=== PATIENT | female | born 1970 | race Caucasian/White ===

== ENCOUNTER 2017-12-09 07:55 | Emergency (ER) | payer OTHER, SELFPAY ==
[2017-12-09 07:56] VITALS: BP 152/85; PULSE 101; RESP 16; TEMP 37.1; O2SAT 97; BMI 34.5
--- NOTE | 2017-12-09 08:16 | CT_ITS ---
STUDY: CT ABDOMEN AND PELVIS WITH CONTRAST REASON FOR EXAM: Female, 47 years old. Rectal pain. RADIATION DOSAGE (If Supplied By Facility): CTDIvol = ( 17.12 ) mGy, DLP = ( 2256.25 ) mGycm TECHNIQUE: Transaxial images were obtained from the dome of the diaphragm to the symphysis pubis without oral contrast. 100 ml of Isovue 300 contrast was administered. Sagittal and coronal images were reconstructed. Individualized dose optimization techniques were used for this CT. COMPARISON: None. FINDINGS: There is bilateral basilar dependent atelectasis. The visualized portions of the heart are within normal limits. Normal liver. The gallbladder is contracted. Normal spleen. Normal pancreas. Normal bilateral adrenal glands. Normal right kidney. Normal left kidney. Normal visualized stomach. There is no evidence for dilated bowel, ascites or pneumoperitoneum. Small bowel has a grossly normal appearance. There is abnormal thickening of the woods the descending colon. This may be the result of acute or chronic inflammation. There are multiple scattered colonic diverticula. The appendix is visualized and appears normal. Normal abdominal aorta. Normal inferior vena cava. Normal retroperitoneum. Normal urinary bladder. There is a small umbilical hernia containing fat. There is abnormally increased attenuation in the region of the right iliac bone and adjacent right sacrum at the sacroiliac joint. This may be the result of a sacroiliitis and/or degenerative arthropathy. CT/Abdomen/Pelvis W IV Cont ONLY IMPRESSION: 1. Nonspecific abnormal thickening of the woods of the descending colon may be the result of acute and/or chronic infection or inflammation. 2. Prominent right-sided sacroiliac degenerative changes possibly related to sacroiliitis. Electronically Signed: Sydnee Cesar MD at 10:03 EDT , Service support ,
--- NOTE | 2017-12-09 08:24 | ED.VISSUMM ---
- ER Visit Summary Date of Service: 12/09/17 Chief Complaint: Perineal pain History of Present Illness: The patient is a 47 F presenting for evaluation secondary to rectal and perineal pain. Patient states that over the course last 3 days she has been having frequent green stools. She states that these are soft in consistency and have been having approximately 6-7 episodes per day. Patient states that she developed a mild amount of hip pain yesterday, that she thought was because she had worked outside over the weekend. Patient states that today however she has developed severe rectal perineal and vaginal pain. Patient states that sharp and continuous worse with coughing or any sort of Valsalva. She has not gotten any sort of relief by taking a hot bath, taking medications, applying lidocaine, or applying a heating pad. Patient denies any fever. She denies any abdominal pain nausea or vomiting. She is status post tubal ligation. She states that she does not feel any lumps bumps masses in the area. She denies any vaginal discharge. Review of systems otherwise negative. Physical Examination: Vital signs are notable for mild tachycardia heart rate of 101. Well-nourished female uncomfortable but not in physiologic distress. Moist mucous membranes. Heart tachycardic and regular. Lungs clear. Abdomen was soft nontender nondistended normal bowel sounds. Rectal exam was tender on digital rectal exam, but I was not able to appreciate any sort of masses or abscesses. No gross blood. There is tenderness and firmness of the perineal area, and again no abscesses or masses were appreciated. Test Results: CBC, chemistry, urinalysis unremarkable. CT abdomen and pelvis with IV contrast shows thickening of the descending colon likely indicative of proctatitis Emergency Department Course and Treatment: Patient presented secondary to rectal pain. She was given morphine and Zofran. She had some symptomatic improvement on repeat evaluation. Workup including CBC chemistry urinalysis was unremarkable, but CT abdomen and pelvis with contrast shows thickening of the descending colon potentially consistent with proctitis. Patient is not septic at this point, I do not believe that she requires admission. I do believe that she requires close follow-up as this could be a presentation of inflammatory bowel disease versus cancer versus infection, so I did contact Dr. Pak general surgery to arrange follow-up. Patient will be placed on a course of Augmentin, Percocet, and Colace. Disposition: Discharge Impression: 1. Proctitis This note was generated with [employer] dictation software. It may contain incorrect words, spelling, and punctuation that were not noted in review of the chart prior to signing ED Disposition - Plan for ED Patient: Disposition: Home or Assisted Living Chief Complaint: Other, Pain/Inj Diagnosis: Proctitis Instructions: ED Gastroenteritis Bacterial Prescriptions: Oxycodone HCl/Acetaminophen [Percocet 5/325] 1 tab PO Q6H PRN PRN 3 Days #12 tab PRN Reason: Pain Amox/Clavulanate Tablet [Augmentin Tablet] 875 mg PO Q12H #20 tab Docusate Sodium [Colace] 100 mg PO DAILY #20 cap Referrals: Gissel Pak MD [STAFF PHYSICIAN] - As soon as possible
[2017-12-09 08:33] LABS: Color, Urine Yellow (Yellow); Glucose, Dipstick Normal (Normal); Ketone-Dipstick Negative (Negative); Leukocyte Esterase-Dipstick 25 /ul (Negative); Nitrite-Dipstick Negative (Negative); Occult Blood-Urine 150 /ul (Negative); Protein-Dipstick 30 mg/dl (Negative); Specific Gravity, Urine 1.025 (1.002-1.030); Urine Bilirubin Dipstick Negative (Negative); Urine Clarity Sl. Cloudy (Clear); Urine Urobilinogen Normal (Normal)
[2017-12-09 08:41] LABS: Bacteria 1+ /hpf (None Seen); Mucous, Urine 2+ /hpf (<or=2+); Red Blood Cells-Urine 0-5 SEEN /hpf (0-5); Squamous Epithelial Cells - UA 0-5 SEEN /hpf (5-10); White Blood Cells 0-5 SEEN /hpf (0-5)
[2017-12-09 08:46] LABS: Absolute Lymphocyte Count 2.21 X10^3/ul (0.83-4.51); Absolute Neutrophil Count 6.6 X10^3/uL (2.0-7.7); Basophil# 0.01 X10^3/uL; Basophil% 0.1 % (0-1); Eosinophil# 0.24 X10^3/uL; Eosinophils% 2.5 % (0-5); Hematocrit 40.6 % (37-47); Hemoglobin 13.1 g/dl (12.0-15.0); Lymphocyte # 2.21 X10^3/ul (4.0); Mean Corp Hgb Conc 32.3 g/gl (32-36); Mean Corpuscular Hgb 28.8 pg (27.0-32.0); Mean Corpuscular Volume 89.2 fL (81-99); Mean Platelet Vol. 10.7 fl (6.2-12.0); Monocyte# 0.53 X10^3/uL; Monocyte% 5.5 % (0-10); Neutrophil % 68.8 % (47-70); POSITIVE COUNT NO; POSITIVE DIFFERENTIAL NO; POSITIVE MORPHOLOGY NO; Platelet Count 259 K/mm3 (150-450); RBC Distribution Width CV 14.6 % (11.6-14.6); RBC Distribution Width SD 47.3 fl (35.1-43.9); Red Blood Count 4.55 M/mm3 (4.2-5.4); White Blood Count 9.6 K/mm3 (4.4-11.0)
[2017-12-09] MEDS: Ondansetron 4 MG/2 ML Vial IV (08:52)
[2017-12-09] MEDS: Morphine 4 MG/ML Syringe IV (08:52)
[2017-12-09 08:58] LABS: Anion Gap 8 (5-15); BUN 13 mg/dL (7-18); BUN/Creat Ratio 18.9 RATIO (10-20); Calcium,Total 8.7 mg/dL (8.5-10.1); Chloride 109 mmol/L (98-107); Creatinine, Serum 0.69 mg/dL (0.55-1.02); EST Glomerular Filtration Rate 97 mL/min (>60); Est Glom Filt Rate - Afr Amer 118 mL/min (>60); Estimated Creatinine Clearance 87.97 ml/min; Glucose 94 mg/dL (74-106); Sodium Level 140 mmol/L (136-145)
[2017-12-09 11:17] VITALS: BP 137/93; PULSE 73; RESP 16; O2SAT 97
== END 2017-12-09 11:30 | disposition home or self-care (01) ==
PROVIDERS: Emergency Provider Emergency Medicine
DX: K62.89 Other specified diseases of anus and rectum (principal); I10 Essential (primary) hypertension; Z98.51 Tubal ligation status; Z79.899 Other long term (current) drug therapy
CPT/HCPCS: 74177; 80048; 81001; 85025; 96361; 96374; 96375; 99283; J7030; J7040; Q9967; A4216; J2405

== ENCOUNTER → 2019-04-14 14:26 | Outpatient (CLI) | payer OTHER, SELFPAY ==
--- NOTE | 2019-04-14 14:39 | BI_ITS ---
MAMMOGRAPHY - BILATERAL DIAGNOSTIC REASON FOR EXAM: Female, 49 years old. Focal infected skin overlying the right perihilar region. Patient is currently on antibiotics. PERTINENT HISTORY: Non-contributory. TECHNIQUE: Digital bilateral breast belén (3D mammographic acquisition) in the CC and MLO projections. 2-D mediolateral oblique (MLO) and craniocaudad (CC) views of both breasts were obtained. CAD: Full Field Digital Mammography with Computer Added Detection was performed. COMPARISON: None. Baseline examination. FINDINGS: Breast Composition: The breasts are heterogeneously dense, which may obscure small masses. There are no dominant masses or suspicious calcifications. Benign-appearing bilateral axillary lymph nodes. No other significant abnormalities are identified. BI/DIAG MAMM W/CAD, BILAT IMPRESSION: Negative diagnostic mammogram. Correlation with ultrasound of the right periareolar region is recommended. ASSESSMENT CATEGORY: BIRADS Category 0: Incomplete. Need additional imaging evaluation. A letter regarding these results will be sent to the patient by the facility within 30 days. Approximately 10% of breast cancers are not detected by mammography. A normal mammogram should not delay biopsy of a clinically suspicious abnormality. Electronically Signed: Baldev Ellis, at 15:36 EDT , Service support ,
--- NOTE | 2019-04-14 15:30 | US_ITS ---
STUDY: ULTRASOUND BREAST - RIGHT REASON FOR EXAM: Female, 49 years old. 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 TECHNIQUE: Axial and longitudinal images of the RIGHT breast were performed with a high resolution ultrasound transducer. COMPARISON: Comparison is made with prior mammogram done earlier in the day. FINDINGS: RIGHT Breast: The areas of interest were examined by ultrasound. No solid or cystic mass lesion is seen. No fluid collection is present. US/Breast Limited Unilateral IMPRESSION: Unremarkable sonographic examination ASSESSMENT CATEGORY: BIRADS Category 2: Benign. A letter regarding these results will be sent to the patient by the facility within 30 days. Electronically Signed: Baldev Ellis, at 8:45 EDT , Service support ,
== END ==
LOC: OPBI 14:28
PROVIDERS: Family Provider Nurse Practitioner Family; PCP Nurse Practitioner Family; Referring Provider Nurse Practitioner Family; Visit Provider Nurse Practitioner Family
DX: N61.1 Abscess of the breast and nipple (principal)
CPT/HCPCS: 76642; 77062; 77066; G0279

== ENCOUNTER 2019-09-15 13:19 | Observation (INO) | payer OTHER, SELFPAY ==
[2019-09-15] VITALS (16 sets, daily range): BP systolic 157–182; BP diastolic 79–105; PULSE 91–118; RESP 16–22; TEMP 36.6–36.9; O2SAT 87–96; BMI 34.2; BMI 35.4
--- NOTE | 2019-09-15 14:11 | EKG12_ITS ---
Test Reason : SOB Blood Pressure : / mmHG Vent. Rate : 087 BPM Atrial Rate : 087 BPM P-R Int : 164 ms QRS Dur : 090 ms QT Int : 376 ms P-R-T Axes : 057 044 090 degrees QTc Int : 452 ms Normal sinus rhythm Nonspecific T wave abnormality Abnormal ECG Confirmed by SLICK GAXIOLA ([id number]), newspaper copy editor POLLY WESTBROOK ([id number]) on 09/17/2019 3:18:32 PM Referred By: EDUARDO Confirmed By:SLICK GAXIOLA
--- NOTE | 2019-09-15 14:14 | ED.DCSUM_ITS ---
History of Present Illness Chief Complaint: Abn Labs Narrative: States that there were several coworkers that were recently sick with human metapneumovirus. Patient states she felt ill last . She was experiencing cough and fever runny nose myalgias. She did experience some diarrhea and some vomiting on Saturday. She went to [place] emergency room on Saturday. She states that she had multiple labs including an elevated d-dimer followed by a CAT scan of her chest and was eventually discharged home on prednisone albuterol inhaler and doxycycline. She followed up with her doctor today and they sent her to the emergency room. She states that she gets short of breath with any type of activity. There is been no further fever. Minimal sputum production. She is a smoker but has never been diagnosed with any lung conditions. No further fevers. She states that she has been trying to hydrate but it is been difficult to eat and drink. Past Medical History - Allergies and Home Meds Allergies/Adverse Reactions: Allergies No Known Allergies Allergy (Verified 09/15/19 13:20) Primary Care Physician: Ella Abad NP-C [Primary Care Provider] - Smoking Status: Current every day smoker Review of Systems General: Reports: Chills, Fever, Malaise. Denies: Sweats Eyes: Denies: Visual changes - bilaterally, Diplopia ENT: Denies: Rhinorrhea, Sore throat Cardiovascular: Denies: Chest pain, Palpitations Respiratory: Reports: Dyspnea, Cough, Dyspnea on exertion Gastrointestinal: Reports: Nausea, Vomiting, Diarrhea. Denies: Abdominal pain, Melena, Hematochezia Genitourinary: Denies: Dysuria, Hematuria, Frequency Musculoskeletal: Reports: Myalgias. Denies: Back pain, Extremity Pain Skin: Denies: Rash, Wounds Neurological: Reports: Headache. Denies: Weakness, Numbness Physical Exam Vital Signs/Narrative: Vital Signs Temp Pulse Resp BP Pulse Ox 09/15/19 13:33 98 F 96 19 H 182/102 H 90 09/15/19 13:21 98.1 F 102 H 16 163/105 H 90 Inital Vital Signs reviewed: Yes General: Well nourished, Well developed, No Acute Distress Head: Normocephalic, Atraumatic Eyes: Perrl, EOMI ENT: Moist mucous membranes, No rhinorrhea Neck: Supple, Nontender Cardiovascular: Regular rate, Regular rhythm, No murmurs Respiratory: No distress, CTA bilaterally, Chest nontender Abdomen: Soft, Nontender, Nondistended, Normal bowel sounds Back: Nontender, Normal Inspection Extremities: Nontender, No edema Skin: Normal color, No rash Neurological: Alert, Oriented x3, Cranial nerves II-XII grossly intact, Normal Strength, Normal Sensation Psychological: Normal affect, Normal Mood Diagnostic/Tx/Re-eval - Medical Decision Making Patient's labs are rather unremarkable here. Chest x-ray shows no acute infiltrative process or effusions. She received a DuoNeb. This opened her up and now hear significant wheezing. Better air exchange. She is able to ambulate down the hallway at 90%. She received additional albuterol. Patient was removed from supplemental oxygen I have not seen any hypoxemia but we will continue to monitor. Her plan will be admit for observation to medical. ED Disposition - Plan for ED Patient: Disposition: [facility] Diagnosis: Bronchitis with bronchospasm Referrals: Ella Abad, ROSARIO-C [Primary Care Provider] -
[2019-09-15] MEDS: Ipratropium/Albuterol Sulfate 3 ML AMPUL.NEB INHALATION ×3 (14:29→22:53)
--- NOTE | 2019-09-15 14:38 | RAD_ITS ---
STUDY: X-RAY CHEST REASON FOR EXAM: Female, 49 years old. ELEVATED D DIMER BUN AND SHORTNESS OF BREATH. CONGESTION SINCE SATURDAY TECHNIQUE: PA and lateral views of the chest. COMPARISON: Comparison is made with prior study dated January 01, 2015. FINDINGS: EKG electrodes are seen. The lungs are clear and expanded. There is no demonstrated pleural abnormality. Normal size heart. Normal mediastinum and zully. Normal visualized pulmonary arteries. There is atherosclerotic tortuosity of the aortic arch and descending thoracic aorta. There are mild degenerative changes of the visualized thoracic spine. Normal visualized ribs, clavicles, and shoulders. There is no demonstrated abnormality of the visualized soft tissue structures of the upper abdomen. RAD/Chest PA and Lateral IMPRESSION: No acute abnormality is present. Electronically Signed: Baldev Ellis, at 14:51 EST , Service support ,
[2019-09-15 15:04] LABS: Absolute Lymphocyte Count 1.58 X10^3/uL (0.83-4.51); Absolute Neutrophil Count 4.5 X10^3/uL (2.0-7.7); Basophil# 0.01 X10^3/uL; Basophil% 0.2 % (0-1); Hematocrit 42.8 % (37-47); Hemoglobin 13.9 g/dL (12.0-15.0); Lymphocyte # 1.58 X10^3/ul (4.0); Lymphocyte % 23.9 % (19-41); Mean Corp Hgb Conc 32.5 g/dL (32-36); Mean Corpuscular Hgb 28.3 pg (27.0-32.0); Mean Platelet Vol. 11.4 fl (6.2-12.0); Monocyte% 7.6 % (0-10); NRBC Flagged by Analyzer 0 % (0-5); Platelet Count 248 K/mm3 (150-450); RBC Distribution Width CV 14.8 % (11.6-14.6); RBC Distribution Width SD 47.3 fl (35.1-43.9); Red Blood Count 4.92 M/mm3 (4.2-5.4); White Blood Count 6.6 K/mm3 (4.4-11.0)
[2019-09-15 15:16] LABS: Lactic Acid 1.4 mmol/L (0.4-1.9)
[2019-09-15 15:19] LABS: ALB/GLOB Ratio 0.8 RATIO (0.9-2.4); AST(SGOT) 75 U/L (15-37); Alanine Aminotransfer ALT/SGPT 60 U/L (13-56); Albumin, Serum 3.3 g/dL (3.2-5.0); Alkaline Phosphatase 107 U/L (45-117); Anion Gap 5 (5-15); BUN 18 mg/dL (7-18); BUN/Creat Ratio 21.9 RATIO (10-20); Calcium,Total 9.7 mg/dL (8.5-10.1); Chloride 104 mmol/L (98-107); Creatinine, Serum 0.82 mg/dL (0.55-1.02); EST Glomerular Filtration Rate 79 mL/min (>60); Est Glom Filt Rate - Afr Amer 95 mL/min (>60); Estimated Creatinine Clearance 69.41 ml/min; Globulin 4.1 g/dL (2.2-4.2); Glucose 109 mg/dL (74-106); Potassium 2.8 mmol/L (3.5-5.1); Protein, Total 7.4 g/dL (6.4-8.2); Sodium Level 140 mmol/L (136-145)
--- NOTE | 2019-09-15 15:40 | HP.PCM_ITS ---
History of Present Illness Date of Admission: 09/15/19 Chief Complaint: shortness of breath, cough The patient is a 49 year old F with past medical history of hypertension. She was admitted through the ED on 09/15/2019 with a complaint of shortness of breath and coughing as well as wheezing. Patient works at [employer] and states several of the patients they have been sick with human metapneumovirus. She started having a mild fever and chills with associated cough with nonproductive sputum as well as wheezing about 4 days prior to admission. Symptoms persisted so she went to [facility] ED 2 days prior to presentation. Whilst there, she had a CT a of the chest done to rule out a PE as she had had a recent [address] to and from [place] over [address] was negative for PE. She was sent home on prednisone and doxycycline. However symptoms persisted and she remained short of breath. Her wheezing was also not improving though she denied any chest pain. She decided to come into the ED today. On review in the ED pulse rate was 108 and respiratory rate was 22 with blood pressure of 157/81. Temperature was 98 Fahrenheit. She was saturating at 87% on 2 L of oxygen. Chemistry showed potassium of 2.8 and lactic acid was 1.4. Initial troponin was negative and BNP was 13.1. CBC showed hemoglobin of 13.9 with WBC of 6.6. This x-ray showed no acute abnormality. She was started on IV Solu-Medrol and breathing treatments and is been admitted to be managed for acu te hypoxic respiratory insufficiency likely due to bronchitis. [] Past Medical History Allergies No Known Allergies Allergy (Verified 09/15/19 13:20) Home Medications: Ambulatory Orders Medication Instructions Recorded Lisinopril 20 mg PO DAILY 12/09/17 Doxycycline 100 mg PO BID 09/15/19 predniSONE tablet 40 mg PO DAILY 09/15/19 Surgical History: no surgical history Psychiatric History: No pertinent psych hx [employer]PRESENTATIVE History: No pertinent [employer] REPRESENTATIVE history Lives: Alone Smoking Status: Heavy Smoker (>10/day) Tobacco Use: Cigarettes Alcohol: None Drugs: None - *Family History Maternal History Items: No pertinent history Paternal History Items: No pertinent history Review of Systems Constitutional: Reports: Malaise, Weakness, Fatigue. Denies: Anorexia, Chills, Fever Eyes: Denies: Blurred vision HEENT: Denies: Head Aches, Sinus Congestion, Sinus Drainage Cardiovascular: Denies: Chest Pain, Edema, Heaviness, Light Headedness, Orthopnea, Palpitations Respiratory: Reports: Cough, Shortness of Breath, Shortness of breath at rest, Shortness of breath upon exertion, Wheezing. Denies: Hemoptysis, Pleuritic Pain, Sputum production Gastrointestinal: Denies: Abdominal Pain, Nausea, Vomiting Genitourinary: Denies: Dysuria Musculoskeletal: Denies: Joint Pain, Joint Tenderness Skin: Denies: Rash, Wounds Neurological: Denies: Numbness, Tingling, Focal weakness Psychiatric: Denies: Anxiety, Depression, Homicidal Ideations, Suicidal Ideations Hematologic/ Lymphatic: Denies: Easy Bruising, Easy Bleeding VTE Information - Inpt Only VTE Present on Admission: No VTE Pharm Prophylaxis ordered?: Yes Patient Problems: Active and Suspected Problems Bronchitis with bronchospasm (Acute) - Physical Exam Vitals/I&O's: Vital Signs Temp Pulse Resp BP Pulse Ox 98 F 92 18 182/102 H 91 09/15/19 13:33 09/15/19 14:29 09/15/19 14:29 09/15/19 13:33 09/15/19 14:30 Oxygen Flow Rate (L/min) 2 Oxygen Delivery Method Nasal Cannula Weight: 193 lb Body Mass Index (BMI) 34.2 General: Alert, Oriented x3, Cooperative, No apparent distress HEENT: Atraumatic, PERRLA, EOMI, Normocephalic Oral: Dry Mucosa Neck: Supple, No JVD, Negative Carotid Bruits Lungs: - - breath sounds diminished in lung bases; no wheezes or crackles. Mild wheezing in lung tai bilaterally. on 2L of oxygen Cardiovascular: Regular Rhythm, Normal S1, Normal S2, No murmurs, Tachycardic Abdomen: Bowel Sounds Present, Soft, Non Tender Extremities: No clubbing, No cyanosis, No edema, Capillary Refill Less than 3 Seconds Skin: No rashes, No breakdown Musculoskeletal: No Tenderness to Palpation of Joints or Extremities Lymphatic: No Cervical, Supraclavicular, or Inguinal Adenopathy Neurological: Cranial nerves II-XII grossly intact, Neuro grossly intact, Motor Exam 5/5 strength throughout Psych/Mental Status: Normal Affect, Appropriate, Alert and oriented to time, p lace, person, mood and affect Laboratory Results 09/15/19 14:10: WBC 6.6, RBC 4.92, Hgb 13.9, Hct 42.8, MCV 87.0, MCH 28.3, MCHC 32.5, RDW Std Deviation 47.3 H, RDW Coeff of Kasey 14.8 H, Plt Count 248, MPV 11.4, Immature Gran % (Auto) 0.300, Neut % (Auto) 68.0, Lymph % (Auto) 23.9, [place] % (Auto) 7.6, Eos % (Auto) 0.0, Baso % (Auto) 0.2, Absolute Neuts (auto) 4.5, Absolute Lymphs (auto) 1.58, Nucleated RBC % 0 09/15/19 14:10: Sodium 140, Potassium 2.8 L, Chloride 104, Carbon Dioxide 31.0, Anion Gap 5, BUN 18, Creatinine 0.82, Estim Creat Clear Calc 69.41, Est GFR (MDRD) Af Amer 95, Est GFR (MDRD) Non-Af 79, BUN/Creatinine Ratio 21.9 H, Glucose 109 H, Calcium 9.7, Total Bilirubin 0.30, AST 75 H, ALT 60 H, Alkaline Phosphatase 107, Troponin I < 0.015, Total Protein 7.4, Albumin 3.3, Globulin 4.1, Albumin/Globulin Ratio 0.8 L 09/15/19 14:10: Lactic Acid 1.4 09/15/19 14:10: B-Natriuretic Peptide Pending Diagnostic Data Chest X-Ray 09/15/19 14:38 IMPRESSION: No acute abnormality is present. Electronically Signed: Baldev Ellis, at 14:51 EST , Service support , Assessment/Plan All Active Problems Bronchitis with bronchospasm (Acute) 49 y/o admitted with a complaint of shortness of breath, cough and wheezing. 1. Acute hypoxic respiratory insufficiency due to acute bronchitis * Admit to [facility] with telemetry * She is tachycardic and tachypneic but she is able to comfortably complete sentences. Has mild expiratory wheezing bilaterally * Gave IV Solu-Medrol 40 mg every 8. Breathing treatments with duo nebs PRN. * Will hold off on antibiotics for now as there is no clear evidence of infection. Of note, CTA done 2 days ago was negative for PE. * Titrate oxygen to maintain saturation above 90%. * 2. Acute bronchitis: As under 1. Check respiratory panel. 3. Hypokalemia: Potassium is 2.8. Will replace and monitor. Will check magnesium. 4. SIRS criteria: * Has positive SIRS criteria 2/4-tachycardia and tachypnea. * However chest x-ray is negative for any pneumonia and I think this is all due to the acute bronchitis. I personally reviewed the chest x-ray myself and agree with the reading of no acute cardiopulmonary process. * Will hold off on antibiotics for now. * 5. Hypertension: On lisinopril. Blood pressure mildly elevated at 157/81. IV hydralazine PRN. CODE STATUS: Full code * Patient was counseled extensively about different types of CODE STATUS including full code, DNR CCA and DNR CCA. Patient elects to be full code. Total aazc-px-ktpl time 16 minutes. Code Visit OBSV E&M: 39210 Initial observation care L3 Procedures: 91176 Advncd Care Plan 30 Min
[2019-09-15] MEDS: Albuterol 2.5 MG/3 ML VIAL.NEB. INHALATION (16:08)
[2019-09-15 16:09] LABS: BNP,B-Type NATRIURETIC PEPTIDE 13.1 pg/mL (0-100)
[2019-09-15] MEDS: MethylPREDNISolone 125 MG/2 ML Vial IV (16:16)
[2019-09-15 18:07] LABS: Magnesium 2.2 mg/dL (1.6-2.6)
[2019-09-15] MEDS: 0.9% Saline Lock 10 ML Syringe IV (22:22)
[2019-09-16] VITALS (17 sets, daily range): BP systolic 162–181; BP diastolic 84–92; PULSE 83–110; RESP 16–20; TEMP 36.6–36.9; O2SAT 86–95
[2019-09-16] MEDS: Ipratropium/Albuterol Sulfate 3 ML AMPUL.NEB INHALATION ×3 (03:31→14:38)
[2019-09-16] MEDS: guaiFENesin 10 ML UDC (200MG/10ML) 20 ML PO (03:59)
[2019-09-16 06:57] LABS: Absolute Neutrophil Count 3.6 X10^3/uL (2.0-7.7); Hematocrit 38.3 % (37-47); Hemoglobin 12.3 g/dL (12.0-15.0); Lymphocyte % 13.8 % (19-41); Mean Corp Hgb Conc 32.1 g/dL (32-36); Mean Corpuscular Hgb 27.9 pg (27.0-32.0); Mean Corpuscular Volume 86.8 fL (81-99); Mean Platelet Vol. 11.1 fl (6.2-12.0); Monocyte# 0.17 X10^3/uL; Monocyte% 3.9 % (0-10); NRBC Flagged by Analyzer 0 % (0-5); Neutrophil # 3.55 X10^3/uL (2.7-7.7); Neutrophil % 81.6 % (47-70); POSITIVE DIFFERENTIAL YES; POSITIVE MORPHOLOGY YES; Platelet Count 216 K/mm3 (150-450); RBC Distribution Width CV 14.9 % (11.6-14.6); RBC Distribution Width SD 47.9 fl (35.1-43.9); Red Blood Count 4.41 M/mm3 (4.2-5.4); White Blood Count 4.4 K/mm3 (4.4-11.0)
[2019-09-16 06:58] LABS: Differential Indicated SCAN CRITERIA MET
[2019-09-16] MEDS: Oseltamivir Phosphate 75 MG Capsule PO (07:00)
[2019-09-16 07:19] LABS: Anion Gap 7 (5-15); BUN 17 mg/dL (7-18); BUN/Creat Ratio 23.9 RATIO (10-20); Calcium,Total 9.8 mg/dL (8.5-10.1); Chloride 103 mmol/L (98-107); Creatinine, Serum 0.71 mg/dL (0.55-1.02); EST Glomerular Filtration Rate 93 mL/min (>60); Est Glom Filt Rate - Afr Amer 113 mL/min (>60); Estimated Creatinine Clearance 80.16 ml/min; Glucose 147 mg/dL (74-106); Potassium 3.6 mmol/L (3.5-5.1); Sodium Level 137 mmol/L (136-145)
[2019-09-16] MEDS: Lisinopril 20 MG Tablet PO (09:55)
--- NOTE | 2019-09-16 10:00 | NURSING ---
Pt eating breakfast at this time- will complete walking spo2 when finished per pt request.
--- NOTE | 2019-09-16 10:54 | PCM.DC ---
- Discharge Diagnoses Current Active Problems: Current Active and Chronic Problems Bronchitis with bronchospasm (Acute) You will use the following diet at home:: Regular Your food should be the consistency of: Regular Your liquids should be the consistency of: Regular/Thin Call your doctor if you observe: Fever of 101 or Higher, Shortness of breath, Dizziness, Fainting spells, Swelling in the ankles, Chest pain, Increased palpitations (irregular heartbeat) Allergies/Adverse Reactions: Allergies No Known Allergies Allergy (Verified 09/15/19 13:20) Medications to take at Discharge Lisinopril 20 mg PO DAILY 12/09/17 predniSONE tablet 40 mg PO DAILY 09/15/19 Albuterol IH (ProAir) [Proair Hfa] 2 puff INHALATION Q4H PRN PRN #1 inhaler 09/16/19 The following prescriptions were given: Albuterol IH (ProAir) [Proair Hfa] 2 puff INHALATION Q4H PRN PRN #1 inhaler PRN Reason: Sob &/Or Wheezing Transmission Status: Pending to [facility] Primary Care Physician: Ella Abad NP-C [Primary Care Provider] - Please follow up with your Primary Care Physician in: 3-5 days Test Results: Test results from this visit will be discussed in further detail at your follow-up appointment, if applicable.
--- NOTE | 2019-09-16 12:31 | NURSING ---
Student documentation reviewed.
[2019-09-16] MEDS: 0.9% Saline Lock 10 ML Syringe IV (14:43)
--- NOTE | 2019-09-16 16:07 | PCM.DC.SUM ---
Discharge Date and Diagnosis - Problem List Patient Problems: Active and Suspected Problems Bronchitis with bronchospasm (Acute) Date of Admission: 09/15/19 Date of Discharge: 09/16/19 - Primary Discharge Diagnosis Active and Suspected Problems Bronchitis with bronchospasm (Acute) Hospital Course and Treatment Imaging Results: CXR: IMPRESSION: No acute abnormality is present. Consults: None Operations: None Procedures: None Summary of Care Provided: Per HPI: The patient is a 49 year old F with past medical history of hypertension. She was admitted through the ED on 09/15/2019 with a complaint of shortness of breath and coughing as well as wheezing. Patient works at [employer] and states several of the patients they have been sick with human metapneumovirus. She started having a mild fever and chills with associated cough with nonproductive sputum as well as wheezing about 4 days prior to admission. Symptoms persisted so she went to [facility] ED 2 days prior to presentation. Whilst there, she had a CT a of the chest done to rule out a PE as she had had a recent [address] to and from [place] over [address] was negative for PE. She was sent home on prednisone and doxycycline. However symptoms persisted and she remained short of breath. Her wheezing was also not improving though she denied any chest pain. She decided to come into the ED today. On review in the ED pulse rate was 108 and respiratory rate was 22 with blood pressure of 157/81. Temperature was 98 Fahrenheit. She was saturating at 87% on 2 L of oxygen. Chemistry showed potassium of 2.8 and lactic acid was 1.4. Initial troponin was negative and BNP was 13.1. CBC showed hemoglobin of 13.9 with WBC of 6.6. This x-ray showed no acute abnormality. She was started on IV Solu-Medrol and breathing treatments and is been admitted to be managed for acute hypoxic respiratory insufficiency likely due to bronchitis Hospital Course: 1. Acute hypoxic respiratory insufficiency secondary to acute bronchitis/tobacco [id number] female who is a smoker had gone to an outside hospital a few days ago for evaluation of her breathing and was sent home with doxycycline, albuterol, prednisone. She states that she was taking prednisone intermittently and was not feeling any better and so she presented to the hospital. Initially our influenza screen came back positive however it was later proved to be a false positive, so she did not have influenza. Her Tamiflu was discontinued. I discussed with her that she could go home if she was feeling better however she may need to have oxygen when she went home and she said that that was okay. She was 92% on room air however with ambulation she did drop to 86% and needed 2 L nasal cannula with ambulation. She is okay with going home on oxygen. She has steroid at home as well as inhaler, I did advise her to do 2 to 4 puffs of the inhaler every 4 hours until she follows up with her PCP potentially on Saturday or Saturday of next week. I discussed the risks and benefits of discharge and she expressed understanding, and would still like to go home. I also had a lengthy discussion with her on the need to quit smoking. 2. HTN-blood pressure in the hospital was elevated to the 170s, she had no symptoms from it and was continued on her lisinopril 20 mg daily. She will need to follow-up with her PCP for further evaluation, it is likely that with the coughing and the shortness of breath that her blood pressure situationally elevated. Also prednisone does not help with her blood pressure. She may need to have further medications added on an outpatient basis. Patient Problems: Active and Suspected Problems Bronchitis with bronchospasm (Acute) - Physical Exam Vitals/I&O's: Vital Signs Temp Pulse Resp BP Pulse Ox 98.1 F 110 H 18 181/92 H 92 09/16/19 11:51 09/16/19 14:38 09/16/19 14:38 09/16/19 11:51 09/16/19 11:51 Oxygen Flow Rate (L/min) [ 2 AMBULATION with Oxygen] Oxygen Flow Rate (L/min) [ 0 AMBULATING on Room Air] Oxygen Flow Rate (L/min) [At 0 REST on Room Air] Oxygen Flow Rate (L/min) 1 Oxygen Delivery Method Room Air Weight: 200 lb Body Mass Index (BMI) 35.4 Intake and Output for Last 24 Hours 09/14/19 09/15/19 09/16/19 23:59 23:59 23:59 Intake Total 1800 / 1800 Balance 1800 / 1800 General: Alert, Oriented x3, Cooperative, No apparent distress HEENT: Atraumatic, PERRLA, EOMI, Normocephalic Oral: Moist Mucosa Neck: Supple, No JVD Lungs: Clear to auscultation, Normal air movement, No rhonchi, No wheeze, No rales, Diminished Cardiovascular: Regular rate, Regular Rhythm, Normal S1, Normal S2, No murmurs Abdomen: Soft, Non Tender, Non-Distended, No Hepato-splenomegaly Extremities: No edema, Capillary Refill Less than 3 Seconds Skin: No rashes, No breakdown Neurological: Neuro grossly intact, Sensory exam intact to light touch and pain Psych/Mental Status: Normal Affect, Appropriate Microbiology Past 72 Hours 09/15/19 16:00 Mucosa - Nasopharyngeal Respiratory Panel (PCR) - Final Laboratory Results 09/15/19 14:10: B-Natriuretic Peptide 13.1 09/15/19 14:10: Magnesium 2.2 09/16/19 06:40: WBC 4.4, RBC 4.41, Hgb 12.3, Hct 38.3, MCV 86.8, MCH 27.9, MCHC 32.1, RDW Std Deviation 47.9 H, RDW Coeff of Kasey 14.9 H, Plt Count 216, MPV 11.1, Immature Gran % (Auto) 0.700, Neut % (Auto) 81.6 H, Lymph % (Auto) 13.8 L, [place] % (Auto) 3.9, Eos % (Auto) 0.0, Baso % (Auto) 0.0, Absolute Neuts (auto) 3.6, Absolute Lymphs (auto) 0.60 L, Nucleated RBC % 0 09/16/19 06:40: Sodium 137, Potassium 3.6, Chloride 103, Carbon Dioxide 27.0, Anion Gap 7, BUN 17, Creatinine 0.71, Estim Creat Clear Calc 80.16, Est GFR (MDRD) Af Amer 113, Est GFR (MDRD) Non-Af 93, BUN/Creatinine Ratio 23.9 H, Glucose 147 H, Calcium 9.8 Current Medications Albuterol/Ipratropium (Duoneb) 3 ml INHALATION Q4H.RT KAIDEN Last Admin: 09/16/19 14:38 Dose: 3 ml Documented by: Glucagon () 1 mg IM .X1 PRN PRN Reason: Hypoglycemia Guaifenesin (Robitussin) 20 ml PO Q4H PRN PRN PRN Reason: COUGH Last Admin: 09/16/19 03:59 Dose: 20 ml Documented by: Dextrose (Dextrose 10%-Water) 250 mls @ 999 mls/hr IV .Q16M PRN; Protocol PRN Reason: HYPOGLYCEMIA Lisinopril (Zestril) 20 mg PO DAILY [facility] Last Admin: 09/16/19 09:55 Dose: 20 mg Documented by: Methylprednisolone (Solu-Medrol) 40 mg IV Q8 KAIDEN Last Admin: 09/16/19 14:43 Dose: 40 mg Documented by: Ondansetron HCl (Zofran) 4 mg IV Q8H PRN PRN PRN Reason: NAUSEA/VOMITING Oseltamivir Phosphate (Tamiflu) 75 mg PO BID [facility] Stop: 09/20/19 22:01 Last Admin: 09/16/19 07:00 Dose: 75 mg Documented by: Oxycodone HCl (Oxyir) 5 mg PO Q4H PRN PRN PRN Reason: Pain Score 4-5/10 Sodium Chloride () 10 - 40 ml IV UD PRN PRN Reason: SALINE FLUSH Last Admin: 09/16/19 14:43 Dose: 10 ml Documented by: Call your doctor if you observe: Fever of 101 or Higher, Shortness of breath, Dizziness, Fainting spells, Swelling in the ankles, Chest pain, Increased palpitations (irregular heartbeat) Home Medications: Medications to take at Discharge Lisinopril 20 mg PO DAILY 12/09/17 predniSONE tablet 40 mg PO DAILY 09/15/19 Albuterol IH (ProAir) [Proair Hfa] 2 puff INHALATION Q4H PRN PRN #1 inhaler 09/16/19 Following Prescrptions Were Given to Patient: Albuterol IH (ProAir) [Proair Hfa] 2 puff INHALATION Q4H PRN PRN #1 inhaler PRN Reason: Sob &/Or Wheezing Transmission Status: Sent to [facility] Primary Care Physician: Ella Abad NP-C [Primary Care Provider] - Please follow up with your Primary Care Physician in: 3-5 days Disposition: Home Minutes spent on discharge:: 35 Patient Condition:: Stable Medical Necessity - Tobacco Use Smoking Status: Current every day smoker Tobacco Use: Cigarettes Meaningful Use Info Meaningful Use Diagnoses (Choose all that apply): None applicable Code Visit OBSV E&M: 16052 Observation care discharge
--- NOTE | 2019-09-16 16:42 | NURSING ---
Security called and asked to bring pt's car to [facility] for pt to be d/c'ed- same in the process.
== END 2019-09-16 16:50 | disposition home or self-care (01) ==
LOC: ED 15:45 → MS3 16:26
PROVIDERS: Admitting Provider Student in an Organized Health Care Education/Training Program; Emergency Provider Emergency Medicine; PCP Nurse Practitioner Family; Visit Provider Family Medicine
DX: J20.9 Acute bronchitis, unspecified (principal); F17.210 Nicotine dependence, cigarettes, uncomplicated; I10 Essential (primary) hypertension; R09.02 Hypoxemia; E87.6 Hypokalemia; R06.02 Shortness of breath; R65.10 Systemic inflammatory response syndrome (SIRS) of non-infectious origin without acute organ dysfunction; Z79.899 Other long term (current) drug therapy; Z79.52 Long term (current) use of systemic steroids
CPT/HCPCS: 36415; 71046; 80048; 80053; 83605; 83735; 83880; 84484; 85025; 87633; 93005; 94640; 96374; 96376; 99218; 99251; 99285; 99406; A4216; G0378; G0463

== ENCOUNTER 2019-09-22 07:56 | Emergency (ER) | payer OTHER, SELFPAY ==
[2019-09-15 16:50] VITALS: BMI 35.4
[2019-09-22 07:57] VITALS: BP 187/107; PULSE 108; RESP 16; TEMP 36; O2SAT 96; BMI 33.1
--- NOTE | 2019-09-22 08:14 | ED.DCSUM_ITS ---
- ER Visit Summary Date of Service: 09/22/19 Chief Complaint: Left forearm redness History of Present Illness: The patient is a 49 F who presents with redness to her left forearm that began yesterday. Patient states she was having some pain in her forearm 2 days ago but did not notice any redness until yesterday. Patient noted some redness to her left forearm and left upper arm yesterday. Patient nisa a line around the edge of the redness. Patient states that today the redness extended beyond the lines that she nisa. Patient has not started any antibiotics yet. Patient denies any fevers or chills. Patient denies any nausea or vomiting. Physical Examination: Vital signs are stable except for an elevated blood pressure of 187/107. Patient is afebrile. Patient is in no acute distress. Oral mucosa is pink and moist. Neck is supple. Trachea is midline. There is no JVD. Skin is warm and dry. There is some mild erythema over the volar aspect of the left forearm. There is also some erythema over the anterior aspect of the left upper arm. There is no fluctuance. There is no evidence of any abscess. There is some tenderness over this area. Radial pulses are equal bilaterally. Sensation was intact to light touch in all digits. Capillary refill is less than 2 seconds in all digits. Test Results: CBC was obtained. There is a mild leukocytosis of 14.0. Emergency Department Course and Treatment: Patient was given a dose of Keflex here. Patient was given a prescription for Keflex. Patient was instructed to use warm compresses to the area. Patient was instructed to follow-up with her [facility] care physician in 5 to 7 days. Patient was instructed to return if worse in any way. Patient understood and was agreeable with the plan. All questions were answered. Disposition: Discharge home Impression: Cellulitis left upper extremity This note was generated with [employer] dictation software. It may contain incorrect words, spelling, and punctuation that were not noted in review of the chart prior to signing ED Disposition - Plan for ED Patient: Disposition: Home or Assisted Living Diagnosis: Cellulitis of left upper extremity Instructions: Cellulitis Prescriptions: Cephalexin [Keflex] 500 mg PO Q6 #40 cap Prescription Printed Referrals: Ella Abad NP-C [Primary Care Provider] - 5-7 Days
[2019-09-22] MEDS: Cephalexin 250 MG Capsule 500 MG PO (08:27)
[2019-09-22 08:34] LABS: Absolute Neutrophil Count 12.2 X10^3/uL (2.0-7.7); Basophil# 0.01 X10^3/uL; Basophil% 0.1 % (0-1); Eosinophil# 0.06 X10^3/uL; Eosinophils% 0.4 % (0-5); Hematocrit 43.4 % (37-47); Hemoglobin 13.9 g/dL (12.0-15.0); Lymphocyte % 7.8 % (19-41); Mean Corpuscular Hgb 28.3 pg (27.0-32.0); Mean Corpuscular Volume 88.2 fL (81-99); Mean Platelet Vol. 10.5 fl (6.2-12.0); Monocyte# 0.57 X10^3/uL; Monocyte% 4.1 % (0-10); NRBC Flagged by Analyzer 0 % (0-5); Neutrophil # 12.18 X10^3/uL (2.7-7.7); Neutrophil % 86.8 % (47-70); Platelet Count 329 K/mm3 (150-450); RBC Distribution Width CV 15.1 % (11.6-14.6); RBC Distribution Width SD 48.6 fl (35.1-43.9); Red Blood Count 4.92 M/mm3 (4.2-5.4)
[2019-09-22 09:01] VITALS: BP 180/101; BP 181/75; PULSE 100; PULSE 80; RESP 16; TEMP 36.6; O2SAT 97
== END 2019-09-22 09:09 | disposition home or self-care (01) ==
PROVIDERS: Emergency Provider Emergency Medicine; PCP Nurse Practitioner Family
DX: L03.114 Cellulitis of left upper limb (principal); R51 Headache; I10 Essential (primary) hypertension; Z79.899 Other long term (current) drug therapy; F17.200 Nicotine dependence, unspecified, uncomplicated
CPT/HCPCS: 85025; 99283

== ENCOUNTER → 2020-03-22 17:32 | Outpatient (CLI) | payer OTHER, SELFPAY ==
[2020-03-22 09:58] VITALS: BMI 33.1
== END ==
PROVIDERS: PCP Nurse Practitioner Family; Referring Provider Physician Assistant Surgical; Visit Provider Physician Assistant Surgical
DX: U07.1 COVID-19 (principal)
CPT/HCPCS: 87635; 94799; U0003

== ENCOUNTER 2021-08-28 16:01 | Outpatient (CLI) | payer OTHER, SELFPAY ==
[2021-08-28] MEDS: 0.9% Saline Lock 10 ML Syringe IV (16:28)
[2021-08-28 16:30] VITALS: BP 146/89; PULSE 109; RESP 16; TEMP 36.7; O2SAT 98; BMI 34.3
[2021-08-28 17:47] VITALS: BP 134/89; PULSE 97; RESP 16; TEMP 36.8; O2SAT 98
[2021-08-28 18:46] VITALS: BP 139/91; PULSE 93; RESP 16; TEMP 37.1; O2SAT 98
== END 2021-08-28 23:59 | disposition home or self-care (01) ==
LOC: MS3OUT 16:02 → MS3 16:03
PROVIDERS: PCP Nurse Practitioner Family; Referring Provider Nurse Practitioner Adult Health; Visit Provider Nurse Practitioner Adult Health
DX: U07.1 COVID-19 (principal)
CPT/HCPCS: J7050; M0245; Q0245; A4216

== ENCOUNTER 2024-11-24 23:31 | Emergency (ER) | payer OTHER, SELFPAY ==
[2024-11-24 23:35] VITALS: BP 176/85; PULSE 93; RESP 18; TEMP 36.6; O2SAT 94; BMI 34.3
[2024-11-24 23:38] VITALS: BP 176/85; PULSE 93; RESP 18; TEMP 36.6; O2SAT 94
--- NOTE | 2024-11-25 00:32 | RAD_ITS ---
EXAM: Foot minimum three views CLINICAL HISTORY: Question osteomyelitis COMPARISON: None available TECHNIQUE: Three views left foot FINDINGS: Hallux valgus metatarsus varus deformity. Soft tissue swelling between the 2nd and 3rd toes and dorsal forefoot without radiopaque foreign body. No osseous lesion, periosteal reaction, sclerosis or osseous destruction. No fracture or dislocation. Joint spaces appear within limits. Small enthesophyte formation plantar surface of the calcaneus. Mild appearing osteoarthrosis 1st cuneiform metatarsal joint. RAD/Foot min 3 Views IMPRESSION: Hallux valgus metatarsus varus deformity. Soft tissue swelling between the 2nd and 3rd toes and dorsal forefoot without r adiopaque foreign body as above. Reading Location: [id number]
[2024-11-25 00:56] LABS: Absolute Lymphocyte Count 2.21 X10^3/uL (0.83-4.51); Absolute Neutrophil Count 7.1 X10^3/uL (2.0-7.7); Basophil# 0.05 X10^3/uL; Basophil% 0.5 % (0-1); Eosinophil# 0.56 X10^3/uL; Eosinophils% 5.2 % (0-5); Hematocrit 42.3 % (37-47); Hemoglobin 13.9 g/dL (12.0-15.0); Lymphocyte # 2.21 X10^3/ul (0.83-4.51); Lymphocyte % 20.6 % (19-41); Mean Corp Hgb Conc 32.9 g/dL (32-36); Mean Corpuscular Hgb 29.2 pg (27.0-32.0); Mean Corpuscular Volume 88.9 fL (81-99); Mean Platelet Vol. 11.8 fl (6.2-12.0); Monocyte# 0.73 X10^3/uL; Monocyte% 6.8 % (0-10); NRBC Flagged by Analyzer 0 % (0-5); Neutrophil # 7.14 X10^3/uL (2.7-7.7); Neutrophil % 66.5 % (47-70); Platelet Count 218 K/mm3 (150-450); RBC Distribution Width SD 49.5 fl (35.1-43.9); Red Blood Count 4.76 M/mm3 (4.2-5.4); White Blood Count 10.7 K/mm3 (4.4-11.0)
[2024-11-25 01:00] VITALS: BP 167/81; PULSE 88; RESP 18; TEMP 36.7; O2SAT 93
[2024-11-25] MEDS: Vancomycin HCl 1,250 MG in 0.9% Normal Saline (250mL Bag) 250 ML 167 MG IV (01:00)
[2024-11-25 01:31] LABS: Lactic Acid < 1.0 mmol/L (0.0-2.0)
[2024-11-25 01:36] LABS: Anion Gap 11 (5-15); BUN 19 mg/dL (4-19); BUN/Creat Ratio 24.2 RATIO (10-20); Calcium,Total 10.3 mg/dL (7.6-11.0); Chloride 106 mmol/L (98-108); EST Glomerular Filtration Rate 89 (>60); Estimated Creatinine Clearance 88.75 ml/min (50-250); Glucose 97 mg/dL (70-99); Procalcitonin 0.04 ng/mL (<=0.10); Sodium Level 140 mmol/L (133-145)
[2024-11-25 02:00] VITALS: BP 175/87; PULSE 85; PULSE 88; RESP 18; TEMP 36.7; O2SAT 93
--- NOTE | 2024-11-25 02:02 | EDS_ITS ---
HPI History of Present Illness Chief Complaint: Cellulitis [facility] Medical History (Updated 11/25/24 @ 02:[address] Jim Garcia, DO) history of ablation Stress incontinence Back pain Neck pain History of blood clots Knee pain Fatigue SOB (shortness of breath) Hypertension Home Medications ?Medication ?Instructions ?Recorded ?Last Taken ?Type cholecalciferol (vitamin D3) 250 250 mcg PO DAILY 03/05 03/24 Unknown History mcg (10,000 unit) tablet lactobacillus combination no.4 3 3,000 mmu cells PO DA BHARATI 08/28/21 Unknown History billion cell capsule (Probiotic) acetaminophen 325 mg tablet 325 mg PO DAILY PRN fever or pain 11/24/24 Unknown History (Tylenol) albuterol sulfate 90 mcg/actuation 2 puff inhalation Q 4H PRN PRN 11/24/24 Unknown History aerosol inhaler shortness of breath or wheez ing cephalexin 500 mg capsule 500 mg PO 4X/DAY 11/24/24 Un known History ipratropium 0.5 mg-albuterol 3 mg 3 ml inhalation Q6H PRN PRN 11/24/24 Unknown History (2.5 mg base)/3 mL nebulization wheezing soln propranolol 20 mg tablet 20 mg PO BID 11/24/24 Unknow n History rivaroxaban 10 mg tablet (Xarelto) 10 mg PO DAILY 11/04 09/29 Unknown History rosuvastatin 40 mg tablet 40 mg PO DAILY 11/24/24 Unkn own History spironolactone 50 mg tablet 50 mg PO DAILY 11/24/24 Un known History sulfamethoxazole 800 1 tab PO BID 11/24/24 Unknow n History mg-trimethoprim 160 mg tablet Allergy/AdvReac Type Severity Reaction Status Date / Time pravastatin AdvReac Severe muscle pain Verified 11/24/24 23:34 Surgical History History of bunionectomy Social History (Updated 03/22/20 @ 10:25 by Enrique FIELDS, DIAMOND) Smoking Status: Current every day smoker tobacco type: cigarettes alcohol intake: never EXAM Physical Exam Const Vital Signs: 11/24/24 23:35 11/24/24 23:38 11/25/24 01:00 Temperature 97.8 F 97.8 F 98.0 F Temperature Source Oral Oral Oral Pulse Rate 93 93 88 Respiratory Rate 18 18 18 Blood Pressure 176/85 H 176/85 H 167/81 H Blood Pressure Mean 115 115 109 Pulse Ox 94 94 93 Oxygen Delivery Method Room Air Room Air Room Air MDM MDM Lab Data Labs: Laboratory Results - last 24 hr 11/25/24 00:44 WBC 10.7 RBC 4.76 Hgb 13.9 Hct 42.3 MCV 88.9 MCH 29.2 MCHC 32.9 RDW Std Deviation 49.5 H RDW Coeff of Kasey 15.0 H Plt Count 218 MPV 11.8 Immature Gran % (Auto) 0.400 Neut % (Auto) 66.5 Lymph % (Auto) 20.6 [place] % (Auto) 6.8 Eos % (Auto) 5.2 H Baso % (Auto) 0.5 Absolute Neuts (auto) 7.1 Absolute Lymphs (auto) 2.21 Nucleated RBC % 0 Sodium 140 Potassium 4.0 Chloride 106 Carbon Dioxide 23.0 Anion Gap 11 BUN 19 Creatinine 0.80 Estim Creat Clear Calc 88.75 Est GFR (MDRD) Non-Af 89 BUN/Creatinine Ratio 24.2 H Glucose 97 Lactic Acid < 1.0 Calcium 10.3 Procalcitonin 0.04 Radiography Diagnostic Testing: Clinical Impression(s) from Imaging Studies Foot X-Ray 11/25/24 00:32 IMPRESSION: Hallux valgus metatarsus varus deformity. Soft tissue swelling between the 2nd and 3rd toes and dorsal forefoot without radiopaque foreign body as above. Reading Location: [facility] Discharge Plan Triage Chief Complaint: Cellulitis ED Provider: Jim Garcia Dx/Rx/DC Orders Clinical Impression: Cellulitis of foot, left Instructions: Cellulitis Dc Prescriptions: No Action cholecalciferol (vitamin D3) 250 mcg (10,000 unit) tablet 250 mcg PO DAILY Probiotic 3 billion cell Capsule 3,000 mmu cells PO DAILY albuterol sulfate 90 mcg/actuation HFA aerosol inhaler 2 puff INHALATION Q4H PRN PRN (Reason: shortness of breath or wheezing) ipratropium-albuterol 0.5 mg-3 mg(2.5 mg base)/3 mL solution for nebulization 3 ml inhalation Q6H PRN PRN (Reason: wheezing) cephalexin 500 mg capsule 500 mg PO 4X/DAY sulfamethoxazole-trimethoprim 800-160 mg tablet 1 tab PO BID propranolol 20 mg tablet 20 mg PO BID spironolactone 50 mg tablet 50 mg PO DAILY rosuvastatin 40 mg tablet 40 mg PO DAILY Xarelto 10 mg tablet 10 mg PO DAILY acetaminophen [Tylenol] 325 mg tablet 325 mg PO DAILY PRN (Reason: fever or pain) Primary Care Provider: Ella Abad NP Referrals: Ella Abad NP, CHILD SUPPORT CASE OFFICER-C [Primary Care Provider] - Activity Restrictions/Additional Instructions: Please continue the Bactrim and Keflex that was given to you by your family doctor. Your workup today shows no signs of bone infection necrotizing fasciitis or systemic infection. If you develop a fever while on antibiotics or notice worsening of symptoms despite your treatment or have any further concerns please return for repeat evaluation Print Language: Yi Disposition Disposition: Home, Self Care
--- NOTE | 2024-11-25 02:02 | EX.ED.DYSGE1 ---
HPI History of Present Illness Chief Complaint: Cellulitis Informant: patient Narrative Narrative: Patient is a 54-year-old female with past medical history of hypertension hyperlipidemia and previous DVT currently on Xarelto. She states that she noticed some redness and swelling to her left foot/toes and was placed on Keflex. She states she was taking this for approximately 4 days but was not noticing any symptom improvement and therefore recently saw her family doctor who added Bactrim for 7 days and continued Keflex out for 10 days. She states there has been no fever but she has noticed increasing redness and swelling to the foot which concerned her and therefore comes in for evaluation [facility] Medical History (Updated 11/25/24 @ 07:[address] Jim Garcia, DO) history of ablation Stress incontinence Back pain Neck pain History of blood clots Knee pain Fatigue SOB (shortness of breath) Hypertension Home Medications ?Medication ?Instructions ?Recorded ?Last Taken ?Type cholecalciferol (vitamin D3) 250 250 mcg PO DAILY 03/22/20 Unknown History mcg (10,000 unit) tablet lactobacillus combination no.4 3 3,000 mmu cells PO DAILY 08/28/21 Unknown History billion cell capsule (Probiotic) acetaminophen 325 mg tablet 325 mg PO DAILY PRN fever or pain 11/24/24 Unknown History (Tylenol) albuterol sulfate 90 mcg/actuation 2 puff inhalation Q4H PRN PRN 11/24/24 Unknown History aerosol inhaler shortness of breath or wheezing cephalexin 500 mg capsule 500 mg PO 4X/DAY 11/24/24 Unknown History ipratropium 0.5 mg-albuterol 3 mg 3 ml inhalation Q6H PRN PRN 11/24/24 Unknown History (2.5 mg base)/3 mL nebulization wheezing soln propranolol 20 mg tablet 20 mg PO BID 11/24/24 Unknown History rivaroxaban 10 mg tablet (Xarelto) 10 mg PO DAILY 11/24/24 Unknown History rosuvastatin 40 mg tablet 40 mg PO DAILY 11/24/24 Unknown History spironolactone 50 mg tablet 50 mg PO DAILY 11/24/24 Unknown History sulfamethoxazole 800 1 tab PO BID 11/24/24 Unknown History mg-trimethoprim 160 mg tablet Allergy/AdvReac Type Severity Reaction Status Date / Time pravastatin AdvReac Severe muscle pain Verified 11/24/24 23:34 Surgical History History of bunionectomy Social History (Updated 03/22/20 @ 10:25 by Enrique FIELDS, PA) Smoking Status: Current every day smoker tobacco type: cigarettes alcohol intake: never ROS ROS ED Constitutional Constitutional ED: Denies chills or fever(s) ENT ENT ED: Denies sore throat Cardiovascular Cardiovascular: Denies chest pain Respiratory/Chest Respiratory/Chest: Denies cough or dyspnea Gastrointestinal Gastrointestinal: Denies abdominal pain, diarrhea, nausea or vomiting Genitourinary Genitourinary ED: Denies dysuria Musculoskeletal Musculoskeletal: Reports other Details: Positive left foot pain Integumentary Reports other Details: Positive soft tissue swelling and erythema of the left foot as well as superficial skin breakdown between the 3rd and 4th toe Neurologic Neurologic: Denies headache(s) Hematologic/Lymphatic Hematologic/Lymphatic: Reports easy bleeding and easy bruising EXAM Physical Exam Const Vital Signs: 11/24/24 23:35 11/24/24 23:38 11/25/24 01:00 Temperature 97.8 F 97.8 F 98.0 F Temperature Source Oral Oral Oral Pulse Rate 93 93 88 Respiratory Rate 18 18 18 Blood Pressure 176/85 H 176/85 H 167/81 H Blood Pressure Mean 115 115 109 Pulse Ox 94 94 93 Oxygen Delivery Method Room Air Room Air Room Air 11/25/24 02:00 11/25/24 02:00 Temperature 98.0 F 98.0 F Temperature Source Oral Pulse Rate 88 85 Respiratory Rate 18 18 Blood Pressure 175/87 H 175/87 H Blood Pressure Mean 116 116 Pulse Ox 93 93 Oxygen Delivery Method Room Air Positive well nourished, well developed and obese General Appearance ED: well developed Nutritional Appearance: obese HEENT HEENT Narrative: Normocephalic atraumatic Eyes PERRL and EOMs intact bilaterally General Eye ED: Negative for scleral icterus Neck supple Resp normal respiratory effort and clear to auscultation bilaterally Cardio regular rate and regular rhythm Extremity Extremity Narrative: Left lower extremity is neurovascularly intact. There is soft tissue swelling with faint erythema and asymmetric warmth to the dorsal aspect of the left foot mainly over top the 2nd-4th digit region. There is skin breakdown in between the 2nd and 3rd digit as well without obvious abscess formation. No free air or crepitance palpated. No lymphangitic streaking. Compartments are soft and compressible going against compartment syndrome Remainder of the exam is normal Neuro oriented x3, CN's II-XII intact bilaterally and no sensory deficits noted Sensorium / Orientation: alert Motor Exam: strength 5/5 throughout Psych mental status grossly normal Skin Skin Narrative: Soft tissue changes to the left foot as documented above MDM MDM MDM Narrative Medical decision making narrative: Patient arrived to the ER hypertensive but has a past medical history of this and otherwise with stable vitals. With asymmetric swelling warmth and tissue breakdown there is concern for cellulitis versus necrotizing fasciitis versus osteomyelitis. Second his basic blood work was obtained and a x-ray was ordered. Patient does not have leukocytosis or left shift there is no lactic acidosis or elevation to her procalcitonin going against systemic infection. X-ray does not show any signs of moth-eaten appearance to suggest osteomyelitis or free air to suggest necrotizing fasciitis. Therefore at this time I do feel patient should continue the Bactrim and Keflex as this should help resolve any remaining infection and as there is not signs of systemic infection there is no need for admission at this time and she is otherwise safe for discharge History & Record Review Discussion w/independent historian: Patient Lab Data Attestation: I reviewed the patient's lab results. Labs: Laboratory Results - last 24 hr 11/25/24 00:44 WBC 10.7 RBC 4.76 Hgb 13.9 Hct 42.3 MCV 88.9 MCH 29.2 MCHC 32.9 RDW Std Deviation 49.5 H RDW Coeff of Kasey 15.0 H Plt Count 218 MPV 11.8 Immature Gran % (Auto) 0.400 Neut % (Auto) 66.5 Lymph % (Auto) 20.6 Davison % (Auto) 6.8 Eos % (Auto) 5.2 H Baso % (Auto) 0.5 Absolute Neuts (auto) 7.1 Absolute Lymphs (auto) 2.21 Nucleated RBC % 0 Sodium 140 Potassium 4.0 Chloride 106 Carbon Dioxide 23.0 Anion Gap 11 BUN 19 Creatinine 0.80 Estim Creat Clear Calc 88.75 Est GFR (MDRD) Non-Af 89 BUN/Creatinine Ratio 24.2 H Glucose 97 Lactic Acid < 1.0 Calcium 10.3 Procalcitonin 0.04 Radiography Diagnostic Testing: Clinical Impression(s) from Imaging Studies Foot X-Ray 11/25/24 00:32 IMPRESSION: Hallux valgus metatarsus varus deformity. Soft tissue swelling between the 2nd and 3rd toes and dorsal forefoot without radiopaque foreign body as above. Reading Location: [facility] X-ray of the left foot as interpreted by the emergency medicine physician reveals soft tissue swelling without acute fracture retained foreign body free air or osteomyelitis Discharge Plan Triage Chief Complaint: Cellulitis ED Provider: Jim Garcia Dx/Rx/DC Orders Clinical Impression: Cellulitis of foot, left, Hypertension, Current use of nursing home anticoagulation, Hyperlipidemia Instructions: Cellulitis Dc Prescriptions: No Action cholecalciferol (vitamin D3) 250 mcg (10,000 unit) tablet 250 mcg PO DAILY Probiotic 3 billion cell Capsule 3,000 mmu cells PO DAILY albuterol sulfate 90 mcg/actuation HFA aerosol inhaler 2 puff INHALATION Q4H PRN PRN (Reason: shortness of breath or wheezing) ipratropium-albuterol 0.5 mg-3 mg(2.5 mg base)/3 mL solution for nebulization 3 ml inhalation Q6H PRN PRN (Reason: wheezing) cephalexin 500 mg capsule 500 mg PO 4X/DAY sulfamethoxazole-trimethoprim 800-160 mg tablet 1 tab PO BID propranolol 20 mg tablet 20 mg PO BID spironolactone 50 mg tablet 50 mg PO DAILY rosuvastatin 40 mg tablet 40 mg PO DAILY Xarelto 10 mg tablet 10 mg PO DAILY acetaminophen [Tylenol] 325 mg tablet 325 mg PO DAILY PRN (Reason: fever or pain) Primary Care Provider: Ella Abad NP Referrals: Ella Abad [employer], [employer] [Primary Care Provider] - Activity Restrictions/Additional Instructions: Please continue the Bactrim and Keflex that was given to you by your family doctor. Your workup today shows no signs of bone infection necrotizing fasciitis or systemic infection. If you develop a fever while on antibiotics or notice worsening of symptoms despite your treatment or have any further concerns please return for repeat evaluation Print Language: Bengali Disposition Disposition: Home, Self Care Discharge Date/Time: 11/25/24 03:29
== END 2024-11-25 03:29 | disposition home or self-care (01) ==
PROVIDERS: Emergency Provider Emergency Medicine; PCP Nurse Practitioner Family; Visit Provider Emergency Medicine
DX: L03.116 Cellulitis of left lower limb (principal); I10 Essential (primary) hypertension; E78.5 Hyperlipidemia, unspecified; Z79.01 Long term (current) use of anticoagulants; Z79.899 Other long term (current) drug therapy; F17.210 Nicotine dependence, cigarettes, uncomplicated; Z86.718 Personal history of other venous thrombosis and embolism
CPT/HCPCS: 73630; 80048; 83605; 84145; 85025; 96365; 96366; 99283; A4216